=== PATIENT | male | born 1945 | race Caucasian/White ===

== ENCOUNTER → 2021-03-28 10:56 | Outpatient (BNVA) | payer MEDICARE, SELFPAY | PROVIDERS: PCP Internal Medicine; Visit Provider Urology | DX: N40.1 Benign prostatic hyperplasia with lower urinary tract symptoms (principal); R35.1 Nocturia; N20.0 Calculus of kidney | CPT/HCPCS: Q3014 ==

== ENCOUNTER 2022-03-17 10:34 | Outpatient (REF) | payer MEDICARE, SELFPAY ==
--- NOTE | ~2022-03-17 | US_ITS ---
EXAMINATION: US RETROPERITONEAL LIMITED (RENAL ONLY) CLINICAL INFORMATION: Calculus of kidney. COMPARISON: Renal ultrasound 11/24/2019 and 06/02/2018. TECHNIQUE: Real-time imaging of the kidneys. FINDINGS: RIGHT KIDNEY: 10.4 x 4.7 x 5.9 cm (SAG x AP x TRV). The kidney is normal in size, contour, and echogenicity. Renal cortical thickness is normal. There is a stable peripheral hyperechoic area in the anterior midpole measuring 1.2 x 0.6 x 1.1 cm. This may represent a junctional parenchymal defect and partial volume averaging with the adjacent perinephric fat versus angiomyolipoma. There is a 6 x 6 x 7 mm echogenic lesions in the cortex of the lateral upper pole that is stable and suggestive of an angiomyolipoma. There are 3 peripelvic cysts seen in the mid and lower pole largest measuring 1.2 x 0.9 x 1.2 cm. There are small echogenic densities questionable for tiny stones. Largest stone or cluster of stones is in the lower pole measuring up to 4 to 5 mm. There is mild fullness of the renal pelvis. No definite hydronephrosis. LEFT KIDNEY: 7.1 x 5.5 x 5.6 cm (SAG x AP x TRV). The kidney is normal in size, contour, and echogenicity. Renal cortical thickness is normal. Mild left hydronephrosis. Small echogenic densities suggestive of tiny stones, largest measuring 2 x 4 mm in the midpole. Small peripelvic cyst in the midpole measuring 8 x 5 x 7 mm. US/US renal BI IMPRESSION: Small bilateral renal stones. Bilateral renal cysts. Mild fullness of the right renal pelvis and mild left hydronephrosis. 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
== END 2022-03-17 10:35 | disposition home or self-care (01) ==
LOC: HO.US 10:34
PROVIDERS: Visit Provider Urology
DX: N20.0 Calculus of kidney (principal)
CPT/HCPCS: 76775

== ENCOUNTER → 2022-04-01 10:30 | Outpatient (BNVA) | payer MEDICARE, SELFPAY | PROVIDERS: PCP Internal Medicine; Visit Provider Urology | DX: N40.1 Benign prostatic hyperplasia with lower urinary tract symptoms (principal); N13.8 Other obstructive and reflux uropathy; N20.0 Calculus of kidney; N28.1 Cyst of kidney, acquired; D17.9 Benign lipomatous neoplasm, unspecified; Z79.899 Other long term (current) drug therapy | CPT/HCPCS: 51798; 99212 ==

== ENCOUNTER 2023-03-23 10:47 | Outpatient (REF) | payer MEDICARE, SELFPAY ==
--- NOTE | ~2023-03-23 | US_ITS ---
EXAMINATION: US RETROPERITONEAL LIMITED (RENAL ONLY) CLINICAL INFORMATION: Renal stones. COMPARISON: Ultrasound renal 03/17/2022 and 11/24/2019. TECHNIQUE: Real-time imaging of the kidneys. FINDINGS: RIGHT KIDNEY: 10.3 x 4.2 x 5.6 cm (SAG x AP x TRV). The kidney is normal in size, contour, and echogenicity. Renal cortical thickness is normal. There is a lower pole 5 mm echogenic focus consistent with a nonobstructing calculus. No renal hydronephrosis. Three benign Bosniak class I parapelvic cysts are noted, the largest measuring 1.1 cm. There is a junctional cortical defect present with fat extending into the defect mimicking a mass. In the upper pole, there is a cortical mass measuring 7 x 6 x 8 mm which is hyperechoic suggesting a benign angiomyolipoma, also seen previously. LEFT KIDNEY: 10.6 x 5.2 x 5.6 cm (SAG x AP x TRV). The kidney is normal in size, contour, and echogenicity. Renal cortical thickness is normal. There is a lower pole 4 mm echogenic focus seen consistent with a nonobstructing stone. No hydronephrosis. Two benign Bosniak class I renal cysts are noted, the largest measuring 2.0 cm in the mid kidney which require no additional imaging or followup. No solid renal masses are seen. US/US renal BI IMPRESSION: 1. Bilateral nonobstructing renal calculi. 2. Bilateral benign Bosniak class I renal cysts which require no additional imaging or followup. 3. An 8 mm echogenic mass suggesting a small angiomyolipoma also noted previously.
== END 2023-03-23 10:48 | disposition home or self-care (01) ==
LOC: HO.US 10:47
PROVIDERS: PCP Internal Medicine; Visit Provider Urology
DX: N20.0 Calculus of kidney (principal)
CPT/HCPCS: 76775

== ENCOUNTER 2023-04-22 12:54 | Outpatient (AMB) | payer MEDICARE, SELFPAY ==
--- NOTE | 2023-04-22 13:19 | A.OFFVIS_ITS ---
Intake Intake Visit Reasons: 1Y US/psa(SET) Intake Note: Patient is present for Follow Up US/PSA/PVR Urology Med: Finasteride, Tamsulosin Antibiotic Allergy: Sulfa Blood Thinner: Clopidogrel, Xarelto PVR: 67ML Allergies Sulfa (Sulfonamide Antibiotics) Allergy (Unknown, Verified 04/22/23 13:20) Unknown HPI HPI Comments History of Present Illness Details Cristofer Roger is a very pleasant male. He is a patient of Dr. Pacheco. He is seen for the following urologic conditions. - nephrolithiasis - AML - BPH symptoms PSA remains low Effective control of bladder symptoms Remains on combination finasteride and tamsulosin Ultrasound with stability of renal cysts. No need to perform yearly MARIANNA 2+ prostate soft nodule right apex, longstanding Twelve month follow-up Prostate/Bladder: Had been on combination therapy with finasteride and tamsulosin Previously on doxazosin Current symptoms include nocturia - occasional Severity of the symptoms that is moderate. Aggravating factors include fluid intake. Current medication(s) include doxazosin 4mg December 2015, 6mg January 2016, 4mg November 201606/15 , finasteride - 03/18 finasteride and tamsulosin Investigative studies included showing a moderately enlarged prostate. PSA July 2010 4.5, July 2013 4.8, August 2014 5.1, November 2015 5.1 free 45% November 2016 3.1 06/15 PSA 2.2 11/16 2.5 12/15 PSA 2.2, 03/18 2.0, 03/19 2.4, 03/20 2.5 Nephrolithiasis/Urolithiasis: Urolithiasis was diagnosed 1990. The patient previously had kidney stones whose composition w a urate, diagnosed after collection by straining. Laboratory investigations include no recent labs. Prior treatment(s) include ESWL 2000 , medical management, with allopurinol 100mg. Prior imaging includes an x-ray showing no evidience of stone 2014, , a renal ultrasound 11/2015 - no visualized nephrolithiasis 06/14 , a renal ultrasound ? 2mm stone right side 06/15 , a renal ultrasound 2mm right stone, 1cm right AML. - 06/18 renal ultrasound bilateral small cysts question of AML, no stones - 03/19 renal ultrasound bilateral small cysts, right AML, small stones bilateral Current symptoms include none PFSH Medical History Atrial fibrillation BPH (benign prostatic hyperplasia) Depression H/O urinary retention Irritable bowel syndrome Prostate nodule Uric acid kidney stone UTI (urinary tract infection) Weak urinary stream Surgical History History of surgery Review of Systems Const Denies chills and Denies fever(s) Card Reports no additional complaints and Denies syncope Resp Denies cough GI Denies abdominal pain and Denies heartburn Reports as per HPI and Denies change in libido Neuro Denies syncope Psych Denies change in libido Endo Denies change in libido Physical Exam Const General: cooperative, healthy appearing, comfortable and no acute distress Orientation/consciousness: patient oriented x3 HEENT Face and sinus: Yes normal facial exam Mouth: moist mucous membranes Neck Neck: Yes normal visual inspection, Yes full ROM and Yes trachea midline Chest Chest palpation & inspection: normal inspection of the chest Resp Effort & Inspection: normal respiratory effort, able to speak in complete sentences and no respiratory distress GI Inspection: Yes normal to inspection Rectal Exam - Male: Yes normal sphincter tone and Yes prostate normal Male General Exam: Yes normal external exam Penis: normal penis and circumcised Meatus: meatus normal Scrotum: scrotum normal Testes: Testes normal Back/Spine/Pelvis Cervical Spine: normal cervical lordosis Thoracic/Lumbar Spine: thoracic and lumbar spine normal to inspection Skin General skin exam: no rashes or lesions noted Neuro General: patient oriented x3, gait normal, tone normal and moves all extremities Extrem General: Yes normal to inspection and Yes capillary refill normal Office Procedures Post Void Residual Post Residual Void Post Void Residual (PVR): 67 [id number] Void Residual by ultrasound Results AMB Urinalysis, Automated UA Leukoctes 0 Petty/uL Last Edit by MODESTA Bernard on 04/22/23 13:35 UA Nitrite Negative Last Edit by MODESTA Bernard on 04/22/23 13:35 UA Urobilinogen 0.2 mg/dL Last Edit by MODESTA Bernard on 04/22/23 13:3 5 UA Protein 0 mg/dL Last Edit by MODESTA Bernard on 04/22/23 13:35 UA pH 6.0 Last Edit by Alexa Jenkins, RMA on 04/22/23 13:35 UA Blood 0 Teja/uL Last Edit by Alexa Jenkins, RMA on 04/22/23 13:35 UA Specific [place] 1.020 Last Edit by Alexarianna Jenkins, RMA on 04/22/23 13: 35 UA Ketone Negative Last Edit by Alexarianna Jenkins, RMA on 04/22/23 13:35 UA Bilirubin 0 mg/dL Last Edit by Alexa Jenkins RMA on 04/22/23 13:35 UA Glucose 0 mg/dL Last Edit by Alexa Jenkins, RMA on 04/22/23 13:35 Results Reviewed Results Reviewed: Laboratory Last Values Urine pH (Auto) 6.0 04/22/23 13:20 Specific [place] (Auto) 1.020 04/22/23 13:20 Urine Protein (Auto) 0 mg/dL 04/22/23 13:20 Glucose (UA)(Auto) 0 mg/dL 04/22/23 13:20 Urine Ketones (Auto) Negative 04/22/23 13:20 Urine Blood (Auto) 0 Teja/uL 04/22/23 13:20 Urine Nitrite (Auto) Negative 04/22/23 13:20 Urine Bilirubin (Auto) 0 mg/dL 04/22/23 13:20 Urine Urobilinogen (Auto) 0.2 mg/dL 04/22/23 13:20 Leukocyte Esterase (Auto) 0 Petty/uL 04/22/23 13:20 Assessment & Plan Assessment & Plan (1) Nocturia more than twice per night: Code(s): R35.1 - Nocturia (2) BPH loc w urin obs/LUTS: Code(s): N40.1 - Benign prostatic hyperplasia with lower urinary tract symptoms (3) Angiomyolipoma: Code(s): D17.9 - Benign lipomatous neoplasm, unspecified Plan Twelve month follow-up Orders: Orders AMB Urinalysis Automated Today Z13.9 - Encounter for screening, unspecified AMB Post Void Residual by ultrasound Today N40.1 - Benign prostatic hyperplasia with lower urinary tract symptoms Prostate Specific Antigen 364 Days N40.1 - Benign prostatic hyperplasia with lower urinary tract symptoms Medications: Refilled tamsulosin 0.4 mg PO BEDTIME 90 caps 3RF 90 days finasteride 5 mg PO DAILY 90 tabs 3RF 90 days Patient Instructions: Imaging studies, laboratory and physical exam results were discussed and reviewed in detail. No major barriers to patient understanding were identified. An opportunity to ask questions regarding the treatment plan was provided. All questions were answered. The patient expressed understanding and agreement with the above treatment plan. The patient is aware they should contact our office by phone for worsening of their current condition or the appearance of new urologic symptoms. Compliance is encouraged with any medications and followup testing that is ordered. It is a privilege to participate in the urologic care of your patient. If you have any questions or concerns regarding treatment for the above conditions, or other urologic issues, please do not hesitate to contact me. The office telephone contact is [phone]. This note is constructed using voice recognition software. While every effort has been made to ensure accuracy curing bin operator errors may have been included. Yours sincerely, Dr Richard Muro MD, [facility] - Urology Providers of Expert, Compassionate Care for the Genitourinary System Coding Level of Care Code Est Pt Level 4 (98588) Diagnoses Nocturia more than twice per night R35.1 BPH loc w urin obs/LUTS N40.1 Angiomyolipoma D17.9 CPT Codes Post Residual Void - PVR CPT Code: 80199-Ydos Void Residual by ultrasound ([id number])
== END 2023-04-22 14:05 | disposition home or self-care (01) ==
PROVIDERS: Visit Provider Urology
DX: N40.1 Benign prostatic hyperplasia with lower urinary tract symptoms (principal); R35.1 Nocturia; D17.9 Benign lipomatous neoplasm, unspecified
CPT/HCPCS: 99214

== ENCOUNTER → 2023-04-22 12:54 | Outpatient (BNVA) | payer MEDICARE, SELFPAY | PROVIDERS: Visit Provider Urology | DX: N40.1 Benign prostatic hyperplasia with lower urinary tract symptoms (principal); R35.1 Nocturia; D17.9 Benign lipomatous neoplasm, unspecified | CPT/HCPCS: 51798; 99212 ==

== ENCOUNTER 2024-04-20 10:21 | Outpatient (AMB) | payer MEDICARE, SELFPAY ==
--- NOTE | 2024-04-20 10:28 | MHC.OFFVIS ---
Intake Visit Reasons: 1Y Follow Up- PVR/PSA(Set) Intake Note: Patient is present for 1y Follow Up /PVR/PSA Urology Med: Finasteride, Tamsulosin, ALLOPURINOL Antibiotic Allergy: Sulfa Blood Thinner: Clopidogrel, Xarelto PVR: 67ML TODAY'S PVR:0ML'S Industrial Photographer Required: No Allergies Sulfa (Sulfonamide Antibiotics) Allergy (Unknown, Verified 04/20/24 10:30) Unknown Medication List - Last Reconciled 04/20/24 by Richard Muro MD allopurinol 100 mg PO DAILY 90 days clonazepam 0.5 mg PO DAILY PRN clopidogrel 75 mg PO DAILY digoxin 250 mcg PO DAILY finasteride 5 mg PO DAILY 90 days hydrochlorothiazide 12.5 mg PO DAILY losartan 100 mg PO BEDTIME rivaroxaban (Xarelto) 20 mg PO DAILY sotalol 160 mg PO BID tamsulosin 0.4 mg PO BEDTIME 90 days HPI Comments Details: Cristofer Roger is a very pleasant male. He is a patient of Dr. Pacheco. He is seen for the following urologic conditions. - nephrolithiasis - AML - BPH symptoms Yearly follow-up PSA remains low - 2.8 Effective control of bladder symptoms Remains on combination finasteride and tamsulosin Discussed trying without tamsulosin Ultrasound with stability of renal cysts. No need to perform yearly MARIANNA 2+ prostate soft nodule right apex, longstanding Twelve month follow-up Prostate/Bladder: Had been on combination therapy with finasteride and tamsulosin Previously on doxazosin Current symptoms include nocturia - occasional Severity of the symptoms that is moderate. Aggravating factors include fluid intake. Current medication(s) include doxazosin 4mg December 2015, 6mg January 2016, 4mg November 201606/15 , finasteride - 03/18 finasteride and tamsulosin Investigative studies included showing a moderately enlarged prostate. PSA July 2010 4.5, July 2013 4.8, August 2014 5.1, November 2015 5.1 free 45% November 2016 3.1 06/15 PSA 2.2, 11/16 2.5, 12/15 PSA 2.2, 03/18 2.0, 03/19 2.4, 03/20 2.5, 03/21 2.8 Nephrolithiasis/Urolithiasis: Urolithiasis was diagnosed 1990. The patient previously had kidney stones whose composition w a urate, diagnosed after collection by straining. Laboratory investigations include no recent labs. Prior treatment(s) include ESWL 2000 , medical management, with allopurinol 100mg. Prior imaging includes an x-ray showing no evidience of stone 2014, , a renal ultrasound 11/2015 - no visualized nephrolithiasis 06/14 , a renal ultrasound ? 2mm stone right side 06/15 , a renal ultrasound 2mm right stone, 1cm right AML. - 06/18 renal ultrasound bilateral small cysts question of AML, no stones - 03/19 renal ultrasound bilateral small cysts, right AML, small stones bilateral Current symptoms include none PFSH Medical History Atrial fibrillation BPH (benign prostatic hyperplasia) Depression H/O urinary retention Irritable bowel syndrome Prostate nodule Uric acid kidney stone UTI (urinary tract infection) Weak urinary stream Surgical History History of surgery Office Procedures Post Void Residual Post Residual Void Post Void Residual (PVR): 0 [id number] Void Residual by ultrasound Results AMB Urinalysis, Automated UA Leukoctes 0 Petty/uL Last Edit by DARREN Yo on 04/20/24 10:46 UA Nitrite Negative Last Edit by DARREN Yo on 04/20/24 10:46 UA Urobilinogen 0.2 mg/dL Last Edit by DARREN Yo on 04/20/24 10:46 UA Protein 15 mg/dL Last Edit by DARREN Yo on 04/20/24 10:46 UA pH 5.0 Last Edit by DARREN Yo on 04/20/24 10:46 UA Blood 0 Teja/uL Last Edit by DARREN Yo on 04/20/24 10:46 UA Specific [place] 1.025 Last Edit by DARREN Yo on 04/20/24 10:46 UA Ketone Positive Last Edit by DARREN Yo on 04/20/24 10:46 UA Bilirubin 1 mg/dL Last Edit by DARREN Yo on 04/20/24 10:46 UA Glucose 0 mg/dL Last Edit by DARREN Yo on 04/20/24 10:46 Results Reviewed Results Reviewed: Laboratory Last Values Urine pH (Auto) 5.0 04/20/24 10:45 Specific [place] (Auto) 1.025 04/20/24 10:45 Urine Protein (Auto) 15 mg/dL 04/20/24 10:45 Glucose (UA)(Auto) 0 mg/dL 04/20/24 10:45 Urine Ketones (Auto) Positive 04/20/24 10:45 Urine Blood (Auto) 0 Teja/uL 04/20/24 10:45 Urine Nitrite (Auto) Negative 04/20/24 10:45 Urine Bilirubin (Auto) 1 mg/dL 04/20/24 10:45 Urine Urobilinogen (Auto) 0.2 mg/dL 04/20/24 10:45 Leukocyte Esterase (Auto) 0 Petty/uL 04/20/24 10:45 Assessment & Plan Assessment & Plan (1) Renal cyst: Code(s): N28.1 - Cyst of kidney, acquired Category: Medical (2) Nocturia more than twice per night: Code(s): R35.1 - Nocturia Category: Medical (3) BPH loc w urin obs/LUTS: Code(s): N40.1 - Benign prostatic hyperplasia with lower urinary tract symptoms Category: Medical (4) Nephrolithiasis: Code(s): N20.0 - Calculus of kidney Category: Medical Plan Continue yearly follow-up Orders: Orders AMB Urinalysis Automated Today Z13.9 - Encounter for screening, unspecified Prostate Specific Antigen 364 Days N40.1 - Benign prostatic hyperplasia with lower urinary tract symptoms Medications: Refilled allopurinol 100 mg PO DAILY 90 days 90 tabs 3RF kidney stones N40.1 - Benign prostatic hyperplasia with lower urinary tract symptoms Patient Instructions: Imaging studies, laboratory and physical exam results were discussed and reviewed in detail. No major barriers to patient understanding were identified. An opportunity to ask questions regarding the treatment plan was provided. All questions were answered. The patient expressed understanding and agreement with the above treatment plan. The patient is aware they should contact our office by phone for worsening of their current condition or the appearance of new urologic symptoms. Compliance is encouraged with any medications and followup testing that is ordered. It is a privilege to participate in the urologic care of your patient. If you have any questions or concerns regarding treatment for the above conditions, or other urologic issues, please do not hesitate to contact me. The office telephone contact is [phone]. This note is constructed using voice recognition software. While every effort has been made to ensure accuracy graphic engineer errors may have been included. Yours sincerely, Dr Richard Muro MD, [facility] - Urology Providers of Expert, Compassionate Care for the Genitourinary System Coding Level of Care Code Est Pt Level 4 (04692) Diagnoses Renal cyst N28.1 Nocturia more than twice per night R35.1 BPH loc w urin obs/LUTS N40.1 Nephrolithiasis N20.0 CPT Codes Post Residual Void - PVR CPT Code: 91095-Hhfz Void Residual by ultrasound ([id number])
== END 2024-04-20 11:00 | disposition home or self-care (01) ==
LOC: HO.HUSH 10:21
PROVIDERS: PCP Internal Medicine; Visit Provider Urology
DX: N28.1 Cyst of kidney, acquired (principal); N40.1 Benign prostatic hyperplasia with lower urinary tract symptoms; R35.1 Nocturia; N20.0 Calculus of kidney; Z13.9 Encounter for screening, unspecified
CPT/HCPCS: 99214

== ENCOUNTER → 2024-04-20 10:21 | Outpatient (BNVA) | payer MEDICARE, SELFPAY | PROVIDERS: PCP Internal Medicine; Visit Provider Urology | DX: N40.1 Benign prostatic hyperplasia with lower urinary tract symptoms (principal); N28.1 Cyst of kidney, acquired; R35.1 Nocturia; N20.0 Calculus of kidney | CPT/HCPCS: 51798; 81003; 99212 ==

== ENCOUNTER 2025-05-19 11:30 | Outpatient (AMB) | payer MEDICARE, SELFPAY ==
--- NOTE | 2025-05-19 11:39 | MHC.OFFVIS ---
Intake Visit Reasons: 1Y/PSA/PVR Intake Note: Patient is present for 1y Follow Up Urology Med: Finasteride, Tamsulosin, ALLOPURINOL Antibiotic Allergy: Sulfa Blood Thinner: Clopidogrel, TODAY'S PVR:67 mls Cook Vacuum Kettle Required: No Accompanied by: Self / Same As Patient Allergies Sulfa (Sulfonamide Antibiotics) Allergy (Unknown, Verified 05/19/25 11:43) Unknown HPI Comments Details: Cristofer Roger is a very pleasant male. He is a patient of Dr. Pacheco. He is seen for the following urologic conditions. - nephrolithiasis - AML - BPH symptoms Yearly follow-up PSA remains low - 2.8 Effective control of bladder symptoms Remains on combination finasteride and tamsulosin Discussed trying without tamsulosin Ultrasound with stability of renal cysts. No need to perform yearly MARIANNA 2+ prostate soft nodule right apex, longstanding Twelve month follow-up Prostate/Bladder: Had been on combination therapy with finasteride and tamsulosin Previously on doxazosin Current symptoms include nocturia - occasional Severity of the symptoms that is moderate. Aggravating factors include fluid intake. Current medication(s) include doxazosin 4mg December 2015, 6mg January 2016, 4mg November 201606/15 , finasteride - 03/18 finasteride and tamsulosin Investigative studies included showing a moderately enlarged prostate. PSA July 2010 4.5, July 2013 4.8, August 2014 5.1, November 2015 5.1 free 45% November 2016 3.1 06/15 PSA 2.2, 11/16 2.5, 12/15 PSA 2.2, 03/18 2.0, 03/19 2.4, 03/20 2.5, 03/21 2.8, 04/21 2.8 Nephrolithiasis/Urolithiasis: Urolithiasis was diagnosed 1990. The patient previously had kidney stones whose composition w a urate, diagnosed after collection by straining. Laboratory investigations include no recent labs. Prior treatment(s) include ESWL 2000 , medical management, with allopurinol 100mg. Prior imaging includes an x-ray showing no evidience of stone 2014, , a renal ultrasound 11/2015 - no visualized nephrolithiasis 06/14 , a renal ultrasound ? 2mm stone right side 06/15 , a renal ultrasound 2mm right stone, 1cm right AML. - 06/18 renal ultrasound bilateral small cysts question of AML, no stones - 03/19 renal ultrasound bilateral small cysts, right AML, small stones bilateral Current symptoms include none PFSH Medical History Atrial fibrillation BPH (benign prostatic hyperplasia) Depression H/O urinary retention Irritable bowel syndrome Prostate nodule Uric acid kidney stone UTI (urinary tract infection) Weak urinary stream Surgical History History of surgery Review of Systems Const Denies chills and Denies fever(s) Card Reports no additional complaints and Denies syncope Resp Denies cough GI Denies abdominal pain and Denies heartburn Reports as per HPI and Denies change in libido Neuro Denies syncope Psych Denies change in libido Endo Denies change in libido Physical Exam Const General: cooperative, healthy appearing, comfortable and no acute distress Orientation/consciousness: patient oriented x3 HEENT Face and sinus: Yes normal facial exam Mouth: moist mucous membranes Neck Neck: Yes normal visual inspection, Yes full ROM and Yes trachea midline Chest Chest palpation & inspection: normal inspection of the chest Resp Effort & Inspection: normal respiratory effort, able to speak in complete sentences and no respiratory distress GI Inspection: Yes normal to inspection Back/Spine/Pelvis Cervical Spine: normal cervical lordosis Thoracic/Lumbar Spine: thoracic and lumbar spine normal to inspection Skin General skin exam: no rashes or lesions noted Neuro General: patient oriented x3, gait normal, tone normal and moves all extremities Extrem General: Yes normal to inspection and Yes capillary refill normal Office Procedures Post Void Residual Post Residual Void Post Void Residual (PVR): 67 [id number] Void Residual by ultrasound Results AMB Urinalysis, Automated UA Leukoctes 0 Petty/uL Last Edit by DARREN Kan on 05/19/25 12:03 UA Nitrite Negative Last Edit by DARREN Kan on 05/19/25 12:03 UA Urobilinogen 0.2 mg/dL Last Edit by DARREN Kan on 05/19/25 12:03 UA Protein 0 mg/dL Last Edit by DARREN Kan on 05/19/25 12:03 UA pH 5.5 Last Edit by DARREN Kan on 05/19/25 12:03 UA Blood 0 Teja/uL Last Edit by DARREN Kan on 05/19/25 12:03 UA Specific [place] 1.020 Last Edit by DARREN Kan on 05/19/25 12:03 UA Ketone Negative Last Edit by DARREN Kan on 05/19/25 12:03 UA Bilirubin 0 mg/dL Last Edit by DARREN Kan on 05/19/25 12:03 UA Glucose 0 mg/dL Last Edit by DARREN Kan on 05/19/25 12:03 Results Reviewed Results Reviewed: Laboratory Last Values Urine pH (Auto) 5.5 05/19/25 12:02 Specific [place] (Auto) 1.020 05/19/25 12:02 Urine Protein (Auto) 0 mg/dL 05/19/25 12:02 Glucose (UA)(Auto) 0 mg/dL 05/19/25 12:02 Urine Ketones (Auto) Negative 05/19/25 12:02 Urine Blood (Auto) 0 Teja/uL 05/19/25 12:02 Urine Nitrite (Auto) Negative 05/19/25 12:02 Urine Bilirubin (Auto) 0 mg/dL 05/19/25 12:02 Urine Urobilinogen (Auto) 0.2 mg/dL 05/19/25 12:02 Leukocyte Esterase (Auto) 0 Petty/uL 05/19/25 12:02 Assessment & Plan Assessment & Plan (1) BPH loc w urin obs/LUTS: Code(s): N40.1 - Benign prostatic hyperplasia with lower urinary tract symptoms Category: Medical (2) Nocturia more than twice per night: Code(s): R35.1 - Nocturia Category: Medical Plan Twelve month follow-up check Orders: Orders AMB Post Void Residual by ultrasound Today N40.1 - Benign prostatic hyperplasia with lower urinary tract symptoms AMB Urinalysis Automated Today Z13.9 - Encounter for screening, unspecified Patient Instructions: This note is constructed using voice recognition software. While every effort has been made to ensure accuracy dispensing optician errors may have been included. Imaging studies, laboratory and physical exam results were discussed and reviewed in detail. No major barriers to patient understanding were identified. An opportunity to ask questions regarding the treatment plan was provided. All questions were answered. The patient expressed understanding and agreement with the above treatment plan. The patient is aware they should contact our office by phone for worsening of their current condition or the appearance of new urologic symptoms. Compliance is encouraged with any medications and followup testing that is ordered. It is a privilege to participate in the urologic care of your patient. If you have any questions or concerns regarding treatment for the above conditions, or other urologic issues, please do not hesitate to contact me. The office telephone contact is [phone]. Sincerely, Dr Richard Muro MD, [facility] - Urology Compassionate Specialist Care for the Genitourinary System Coding Level of Care Code Est Pt Level 4 (45835) Diagnoses BPH loc w urin obs/LUTS N40.1 Nocturia more than twice per night R35.1 CPT Codes Post Residual Void - PVR CPT Code: 25484-Zkju Void Residual by ultrasound ([id number])
== END 2025-05-19 13:29 | disposition home or self-care (01) ==
LOC: HO.HUSH 11:31
PROVIDERS: PCP Internal Medicine; Visit Provider Urology
DX: N40.1 Benign prostatic hyperplasia with lower urinary tract symptoms (principal); R35.1 Nocturia; Z13.9 Encounter for screening, unspecified
CPT/HCPCS: 99214

== ENCOUNTER → 2025-05-19 11:30 | Outpatient (BNVA) | payer MEDICARE, SELFPAY | PROVIDERS: PCP Internal Medicine; Visit Provider Urology | DX: R35.1 Nocturia (principal); N40.1 Benign prostatic hyperplasia with lower urinary tract symptoms | CPT/HCPCS: 51798; 81003; 99212 ==